=== PATIENT | male | born 1995 | race African-American/Black ===

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

== ENCOUNTER 2017-06-10 22:35 | Emergency (ER) | payer SELFPAY ==
[2017-06-10 22:42] VITALS: BP 114/68
[2017-06-10] MEDS ORDERED: IBUPROFEN 800 MG TABLET PO ONE (23:37)
[2017-06-10] MEDS ORDERED: METHOCARBAMOL 500 MG TABLET PO ONE (23:38)
[2017-06-10] MEDS ORDERED: PSEUDOEPHEDRINE HCL 30 MG TABLET PO ONE (23:38)
[2017-06-10] MEDS ORDERED: LIDOCAINE 5% (700 MG) TRANSDERMAL ADH..PATCH TP ONE (23:38)
--- NOTE | 2017-06-10 23:41 | ER Document Report ---
HPI - HPI Patient complains to provider of: Low back pain Onset: Other - 2 weeks Onset/Duration: Worse Quality of pain: Achy Pain Level: 3 Context: Patient states he was playing basketball 2 weeks ago and fell landing on his back. Patient states that the pain got better although after playing basketball for 4 hours this evening low back pain returned. Patient denies any new injury. Patient denies any radiculopathy or paresthesia. Patient denies any fever or IV drug use. Patient denies any urinary symptoms. Patient additionally reports that he has had sinus congestion and upper respiratory symptoms that started yesterday. Associated Symptoms: Other - Low back pain. denies: Fever Exacerbated by: Movement Relieved by: Denies Similar symptoms previously: No Recently seen / treated by doctor: No - ROS ROS below otherwise negative: Yes Systems Reviewed and Negative: Yes All other systems reviewed and negative - CONSTITUTIONAL Constitutional: DENIES: Fever - EENT EENT: REPORTS: Nasal Drainage-Clear, Congestion - RESPIRATORY Respiratory: REPORTS: Coughing - GASTROINTESTINAL Gastrointestinal: DENIES: Nausea, Patient vomiting - URINARY Urinary: DENIES: Dysuria, Urgency, Frequency - MUSCULOSKELETAL Musculoskeletal: REPORTS: Back Pain. DENIES: Extremity pain, Neck Pain - DERM Skin Color: Normal Skin Problems: None Past Medical History - General Information source: Patient - Social History Smoking Status: Never Smoker Frequency of alcohol use: None Drug Abuse: None Occupation: Contractor on [employer] Lives with: Family Family History: Reviewed & Not Pertinent Patient has suicidal ideation: No Patient has homicidal ideation: No - Medical History Medical History: Negative Renal/ Medical History: Denies: Hx Peritoneal Dialysis Musculoskeltal Medical History: Reports Hx Musculoskeletal Trauma Past Surgical History: Reports: Hx Orthopedic Surgery - Immunizations Immunizations up to date: Yes Hx Diphtheria, Pertussis, Tetanus Vaccination: Yes Vertical Provider Document - CONSTITUTIONAL Agree With Documented VS: Yes Exam Limitations: No Limitations General Appearance: WD/WN, No Apparent Distress Notes: PHYSICAL EXAMINATION: GENERAL: Well-appearing, well-nourished and in no acute distress. HEAD: Atraumatic, normocephalic. EYES: sclera clear, anicteric, conjunctiva are normal. ENT: Clear rhinorrhea, swollen nasal mucosa, moist mucous membranes. NECK: Normal range of motion, supple no lymphadenopathy LUNGS: respirations unlabored HEART: Regular rate and rhythm without murmurs EXTREMITIES: Normal range of motion, no pitting or edema. No cyanosis. Gait normal, pt ambulates without difficulty BACK: Lower lumbar paraspinal tenderness, no midline tenderness, no deformities or step-offs. No CVA tenderness. NEUROLOGICAL: Cranial nerves grossly intact. Normal speech, normal gait. No saddle anesthesia. PSYCH: Normal mood, normal affect. SKIN: Warm, Dry, normal turgor, no rashes or lesions noted. - INFECTION CONTROL TRAVEL OUTSIDE OF THE [place] IN LAST 30 DAYS: No - RESPIRATORY O2 Sat by Pulse Oximetry: 98 Course - Re-evaluation Re-evalutation: 06/11/17 The patient presents with low back pain without signs of spinal cord compression , cauda equina syndrome, infection, aneurysm, or other serious etiology. The patient is neurologically intact. Given the extremely risk of these diagnoses further testing and evaluation for these possibilities does not appear to be indicated at this time. Patient has been instructed to return if the symptoms worsen or change in any way. - Vital Signs Vital signs: Temp Pulse Resp BP Pulse Ox 99.8 F 99 18 114/68 98 06/10/17 22:39 06/10/17 22:39 06/10/17 22:39 06/10/17 22:39 06/10/17 22:39 Discharge - Discharge Clinical Impression: Upper respiratory infection, Low back strain Condition: Stable Disposition: HOME, SELF-CARE Instructions: Acetaminophen, Family Physicians / Practices, Low Back Pain ([facility]) , Muscle Strain ([facility]), Upper Respiratory Illness ([facility]), Warm Packs ([facility]) Additional Instructions: Return immediately for any new or worsening symptoms Followup with your primary care provider, call tomorrow to make a followup appointment Do not resume weight lifting or playing basketball until your pain symptoms have completely resolved Prescriptions: Guaifenesin/P-Ephed HCl [Mucinex D Tablet] 1 each PO Q12 PRN #12 tab.sr.12h PRN Reason: Methocarbamol [Robaxin 500 Mg Tablet] 500 mg PO QID PRN #30 tablet PRN Reason: Naproxen [Naprosyn 250 Nmg Tablet] 1 tab PO BID #14 tablet Forms: Return to Work Referrals: [facility] [Provider Group] - Follow up as needed
== END 2017-06-11 00:07 | disposition home or self-care (01) ==
LOC: ER 22:35
DX: S39.012A Strain of muscle, fascia and tendon of lower back, initial encounter (principal); J06.9 Acute upper respiratory infection, unspecified; X58.XXXA Exposure to other specified factors, initial encounter; Y93.67 Activity, basketball
CPT/HCPCS: 99283

== ENCOUNTER 2017-09-08 17:22 | Emergency (ER) | payer SELFPAY ==
[2017-09-08] MEDS ORDERED: CEFTRIAXONE INJ 250 MG VIAL IM ONE (18:03)
[2017-09-08] MEDS ORDERED: LIDOCAINE 1% INJ-PF (10 MG/ML) 30 ML SDV INJ ONE (18:03)
[2017-09-08] MEDS ORDERED: AZITHROMYCIN 250 MG TABLET PO ONE (18:03)
--- NOTE | 2017-09-08 18:04 | ER Document Report ---
HPI - HPI Patient complains to provider of: Burning with urination Onset: Yesterday Onset/Duration: Gradual Quality of pain: Burning Pain Level: 2 Context: Patient presents complaining of burning with urination. Patient states that he has noticed occasional discharge. Patient's had similar symptoms in the past whenever he had gonorrhea and suspects the same today. Patient denies any skin lesions or rash. Patient denies any testicular pain, abdominal pain, or back pain. Associated Symptoms: Other - Dysuria, penile discharge. denies: Fever Exacerbated by: Denies Relieved by: Denies Similar symptoms previously: Yes Recently seen / treated by doctor: No - ROS ROS below otherwise negative: Yes Systems Reviewed and Negative: Yes All other systems reviewed and negative - CONSTITUTIONAL Constitutional: DENIES: Fever - GASTROINTESTINAL Gastrointestinal: DENIES: Abdominal Pain - URINARY Urinary: REPORTS: Dysuria - MUSCULOSKELETAL Musculoskeletal: DENIES: Back Pain - DERM Skin Color: Normal Skin Problems: None Past Medical History - General Information source: Patient - Social History Smoking Status: Never Smoker Frequency of alcohol use: None Drug Abuse: None Occupation: [employer] Family History: Reviewed & Not Pertinent - Medical History Medical History: Negative Renal/ Medical History: Denies: Hx Peritoneal Dialysis Musculoskeltal Medical History: Reports Hx Musculoskeletal Trauma Past Surgical History: Reports: Hx Orthopedic Surgery - Immunizations Immunizations up to date: Yes Hx Diphtheria, Pertussis, Tetanus Vaccination: Yes Vertical Provider Document - CONSTITUTIONAL Agree With Documented VS: Yes Exam Limitations: No Limitations General Appearance: WD/WN, No Apparent Distress - INFECTION CONTROL TRAVEL OUTSIDE OF THE [place] IN LAST 30 DAYS: No - HEENT HEENT: Atraumatic, Normocephalic - NECK Neck: Normal Inspection - RESPIRATORY Respiratory: Breath Sounds Normal, No Respiratory Distress O2 Sat by Pulse Oximetry: 98 - CARDIOVASCULAR Cardiovascular: Regular Rate, Regular Rhythm - GI/ABDOMEN Gastrointestinal: Abdomen Soft, Abdomen Non-Tender, No Organomegaly - BACK Back: Normal Inspection. negative: CVA Tenderness-Right, CVA Tenderness-Left - MUSCULOSKELETAL/EXTREMETIES Musculoskeletal/Extremeties: MAEW - NEURO Level of Consciousness: Awake, Alert, Appropriate Motor/Sensory: No Motor Deficit - DERM Integumentary: Warm, Dry, No Rash Course - Re-evaluation Re-evalutation: 09/08/17 18:36 Offered patient testing treatment for syphilis, patient declines stating he has had similar symptoms to this and he had gonorrhea in the past and would only like treatment for this at this time. - Vital Signs Vital signs: Temp Pulse Resp BP Pulse Ox 98.8 F 56 L 18 135/58 H 98 09/08/17 17:37 09/08/17 17:37 09/08/17 17:37 09/08/17 17:37 09/08/17 17:37 Discharge - Discharge Clinical Impression: Concern about STD in male without diagnosis Condition: Stable Disposition: HOME, SELF-CARE Instructions: Azithromycin ([facility]), Rocephin ([facility]) Additional Instructions: Return immediately for any new or worsening symptoms Followup with your primary care provider, call tomorrow to make a followup appointment Urine culture is pending, we will call if you need any different treatment Follow-up with the health department if you would like to have additional STD testing such as HIV or syphillis [facility] - Follow up as needed
[2017-09-08 18:33] LABS: APPEARANCE,URINE SLIGHTLY-CLOUDY; BILIRUBIN,URINE NEGATIVE (NEGATIVE); COLOR,URINE YELLOW; GLUCOSE, URINE NEGATIVE (NEGATIVE); KETONES,URINE NEGATIVE (NEGATIVE); LEUKOCYTE ESTERASE,URINE TRACE (NEGATIVE); NITRITE,URINE NEGATIVE (NEGATIVE); PROTEIN,URINE NEGATIVE (NEGATIVE)
[2017-09-08 18:51] VITALS: BP 127/62
[2017-09-08 19:52] LABS: CHLAM PCR DETECTED (NOT DETECT); GON PCR NOT DETECTED (NOT DETECT)
== END 2017-09-08 18:51 | disposition home or self-care (01) ==
LOC: ER 17:22
DX: R30.0 Dysuria (principal); Z20.2 Contact with and (suspected) exposure to infections with a predominantly sexual mode of transmission
CPT/HCPCS: 99283; 96372; 87086; 81001; 87491; 87591; J3490; J0696

== ENCOUNTER 2018-04-04 23:00 | Emergency (ER) | payer MEDICAID, OTHER ==
[2018-04-05] MEDS ORDERED: OXYCODONE-ACETAMINOPHEN 5-325 MG TABLET PO ONE (02:03)
--- NOTE | 2018-04-05 02:10 | ER Document Report ---
ED General - General Chief Complaint: Toothache Stated Complaint: TOOTHACHE Time Seen by Provider: 04/05/18 01:41 Notes: Patient is a 23-year-old male that presents to the emergency department for chief complaint of right lower dental pain. Patient states that he had a dental Placed this past Wednesday, and since that time is been having aching pain , and his right lower tooth where he was placed. He reports the pain currently is a 9 out of 10, describes as an aching constant and throbbing sensation. Denies having any fevers, chills, night sweats, nausea, vomiting. Past Medical History: Denies chronic medical conditions Past Surgical History: Denies surgical history Social History: Admits to rare alcohol use, denies tobacco or illicit drug use. Family History: Reviewed and noncontributory for presenting illness Allergies: Reviewed, see documented allergy list. REVIEW OF SYSTEMS: Unless otherwise stated in this report the patient's positive and negative responses for review of systems for constitutional, eyes, ENT, cardiovascular, respiratory, gastrointestinal, neurological, genitourinary, musculoskeletal, and integumentary systems and related systems to the presenting problem are either as stated in the HPI or were not pertinent or were negative for the symptoms and/or complaints related to the presenting medical problem. PHYSICAL EXAMINATION: Vital signs reviewed, nursing noted reviewed. GENERAL: Well-appearing, well-nourished and in no acute distress. HEAD: Atraumatic, normocephalic. EYES: Eyes appear normal, extraocular movements intact, sclera anicteric, conjunctiva are normal. ENT: nares patent, oropharynx clear without exudates. Moist mucous membranes. Dental filling noted in the tooth #30, no abscess, erythema or bleeding noted at the site, tender to palpate with tongue blade, otherwise unremarkable dental exam. NECK: Normal range of motion, supple without lymphadenopathy LUNGS: Breath sounds clear to auscultation bilaterally and equal. No wheezes rales or rhonchi. HEART: Regular rate and rhythm without murmurs ABDOMEN: Soft, nontender, normoactive bowel sounds. No rebound, guarding, or rigidity. No masses appreciated. EXTREMITIES: Nontender, good range of motion, no pitting or edema. NEUROLOGICAL: No focal neurological deficits. Moves all extremities spontaneously Motor and sensory grossly intact on exam. PSYCH: Normal mood, normal affect. SKIN: Warm, Dry, normal turgor, no rashes or lesions noted on exposed skin TRAVEL OUTSIDE OF THE [place] IN LAST 30 DAYS: No - Related Data Allergies/Adverse Reactions: No Known Allergies Allergy (Verified 09/08/17 17:26) Past Medical History - Social History Smoking Status: Unknown if Ever Smoked Family History: Reviewed & Not Pertinent Patient has suicidal ideation: No Patient has homicidal ideation: No Renal/ Medical History: Denies: Hx Peritoneal Dialysis Musculoskeletal Medical History: Reports Hx Musculoskeletal Trauma Past Surgical History: Reports: Hx Orthopedic Surgery - Immunizations Immunizations up to date: Yes Hx Diphtheria, Pertussis, Tetanus Vaccination: Yes Physical Exam - Vital signs Vitals: Temp Pulse BP Pulse Ox 98.6 F 81 137/88 H 100 04/04/18 23:10 04/04/18 23:10 04/04/18 23:10 04/04/18 23:10 Course - Re-evaluation Re-evalutation: Patient was offered both dental block versus one-time dose of Percocet, and discharged on paroxetine, patient elected to have a dose of Percocet, did not want an injection. Patient was advised to follow-up with a dentist he does have an appointment today. No evidence of abscess on his exam, therefore I do not feel the need for antibiotics, patient was agreeable to plan of care and discharged home. - Vital Signs Vital signs: Temp Pulse Resp BP Pulse Ox 98.6 F 81 137/88 H 100 04/04/18 23:10 04/04/18 23:10 04/04/18 23:10 04/04/18 23:10 Discharge - Discharge Clinical Impression: Pain, dental Condition: Stable Disposition: HOME, SELF-CARE Instructions: Toothache ([facility]) Additional Instructions: Take the naproxen every 12 hours as needed for pain, and follow-up with your dentist today. Prescriptions: Naproxen 500 mg PO Q12H PRN #15 tablet PRN Reason: dental pain Referrals: NADINE SHETH MD [ACTIVE STAFF] - Follow up as needed
[2018-04-05 02:24] VITALS: BP 129/80
== END 2018-04-05 02:24 | disposition home or self-care (01) ==
LOC: ER 23:00
DX: K08.89 Other specified disorders of teeth and supporting structures (principal)
CPT/HCPCS: 99282